=== PATIENT | female | born 2000 | race Caucasian/White ===

== ENCOUNTER 2025-05-03 20:50 | Emergency (ER) | payer MEDICAID, SELFPAY ==
--- NOTE | ~2025-05-03 | CT_ITS ---
CLINICAL HISTORY: abd pain, Cr elevated CT abdomen and pelvis without contrast Comparison: None provided Findings: There are a few micro nodules scattered through the lung bases. The gallbladder and solid organs are within normal limits. No renal stones. No bowel obstruction, pneumoperitoneum, or pneumatosis. Moderate stool. No hernia. Physiologic amount of fluid in the pelvis. Uterus and ovaries unremarkable. Normal appendix. No acute fracture. IMPRESSION: 1. There are few micro nodules in both lung bases which are indeterminate. Mckinley society recommendations do not apply to individuals less than 35 years of age. Follow-up as clinically indicated. 2. Otherwise unremarkable abdomen and pelvis CT. This document has been electronically signed by: Rodolfo Brush MD on 05/04/2025 00:52:23
[2025-05-03 21:00] VITALS: BP 146/96; PULSE 64; RESP 16; TEMP 37; O2SAT 97; BMI 27.0
[2025-05-03 21:17] LABS: Hematocrit 37.6 % (37.0-47.0); Hemoglobin 13.0 g/dl (12.0-16.0); Imm Gran Abs Auto 0.02 X10*3/uL (0.00-0.03); Imm Gran Pct Auto 0.2 % (0.0-0.4); Lymphocytes Absolute Auto 2.1 X10*3/uL (1.2-4.9); MANUAL DIFF FLAG NO; Mean Corpuscular HGB Conc 34.6 g/dl (31.0-35.0); Mean Corpuscular Hemoglobin 30.0 pg (27.0-33.0); Mean Corpuscular Volume 86.8 fL (80.0-98.0); NRBC Abs Auto 0.000 X10*3/uL (0.0-0.012); NRBC Pct Auto 0.0 /100WBC (0.0-0.2); Platelet Count 252 X10*3/uL (160-400); Red Blood Count 4.33 X10*6/uL (4.20-5.50); White Blood Count 9.8 X10*3/uL (4.8-10.8)
[2025-05-03 21:34] LABS: Alanine Aminotransferase 41 U/L (0-31); Albumin Level 4.2 g/dL (3.5-5.0); Alkaline Phosphatase 69 U/L (39-117); Anion Gap 12 (12-20); Aspartate Amino Transferase 29 U/L (5-31); Blood Urea Nitrogen 19 mg/dL (9-16); Calcium 9.2 mg/dL (8.4-10.2); Carbon Dioxide 25 mmol/L (22-29); Chloride 107 mmol/L (96-108); Creatinine Clr Calc Pharmacy 43.4; Estimated Glomerular Filt Rate 29; Potassium 4.0 mmol/L (3.3-5.1); Sodium 140 mmol/L (135-145); Total Protein 7.2 g/dL (6.5-8.0)
[2025-05-03 22:39] LABS: Appearance Urine Clear; Glucose Urine UA Negative (Negative); PH 5.5 (5.0-9.0); Specific Gravity - Urine <= 1.005 (1.005-1.025); UMIC TRIGGER UACC YES
[2025-05-03 22:40] LABS: UPreg QC Valid YES
--- NOTE | 2025-05-03 23:00 | ED.ABDPAIN ---
HPI - Abdominal Pain General Chief Complaint: Abdominal Pain Stated Complaint: Stomach pain Time Seen by Provider: 05/03/25 22:28 Source: patient Mode of arrival: ambulatory Limitations: no limitations History of Present Illness ED Provider: Dr. Milady Fontana HPI narrative: Patient comes to the emergency room complaining 3-4 days of abdominal discomfort, bloating, not feeling quite right. Patient denies nausea vomiting or diarrhea. Patient states that she took a laxative yesterday with no relief, still feels a bit bloated. In his any hematuria or dysuria, no flank pain. Patient denies any past medical history or taking any medication or supplements. Related Data Allergies Allergy/AdvReac Type Severity Reaction Status Date / Time No Known Allergies Allergy Unverified 05/03/25 21:00 Review of Systems Review of Systems Constitutional : No Weight loss, No Fever, No Chills, No Night Sweats, No Fatigue, No Malaise ENT/Mouth : No Hearing loss, No Ear Pain, No Nasal Congestion, No Sinus Pain, No Hoarseness, No sore throat, No Rhinorrhea, No Swallowing Difficulty Eyes: No Eye Pain, No Swelling, No Redness, No Foreign Body, No Discharge, No Vision Changes Cardiovascular : No Chest Pain, No SOB, No Dyspnea on Exertion, No Orthopnea, No Edema, No Palpitations Respiratory : No Cough, No Sputum, No Wheezing, No Smoke Exposure, No Dyspnea Gastrointestinal : No Nausea, No Vomiting, No Diarrhea, complaining of constipation in complaining of abdominal discomfort in bilateral lower quadrants Genitourinary : no irregular bleeding, No Dysuria, No Urinary Frequency, No Hematuria, No Urinary Incontinence, No Urgency, No Flank Pain, No Urinary Flow Changes, No Hesitancy Musculoskeletal : No joint pain, No Myalgias, No Joint Swelling Skin : No Skin Lesions, No rash Neuro : No Weakness, No Numbness, No Paresthesias, No Loss of Consciousness, No Dizziness, No Headache Psych : No Anxiety/Panic, No Depression, No SI/HI/AH/VH, No Social Issues, Heme/Lymph: No Bruising, No Bleeding,No Lymphadenopathy Endocrine : No Polyuria, No Polydipsia, No Temperature Intolerance PMFSH Social History Social History Smoked in Last 30 Days: No Advance Directives: No Advance Directives Information Provided: No Patient : No Physical Exam ED Exam Exam: Appearance: Alert. Oriented X3. No acute distress. Well-appearing Eyes: Pupils equal, round and reactive to light. ENT: Pharynx normal. Neck: Normal inspection. Neck supple. No lymph nodes noted. No crepitus CVS: Normal heart rate and rhythm. Pulses normal. Normal S1 and S2 Respiratory: No respiratory distress. Breath sounds normal. No Wheezing. No rales Abdomen: Soft discomfort to palpation in bilateral lower quadrants, no significant pain, no rebound or guarding, No rigidity. No distention. Skin: Skin warm and dry. Normal skin color. Normal skin turgor. Extremities: No lower extremity edema. No Lacerations. No Rash Neuro: Oriented X 3. No motor deficit. No sensory deficit. Moving all extremities. No slurred speech. CN 2 through 12 grossly intact Psych: calm, cooperative, normal affect Vital Signs: Vital Signs - 24 hr 05/03/25 21:00 05/04/25 02:03 Temperature 98.6 F 98.4 F Pulse Rate 64 65 Respiratory Rate 16 16 Blood Pressure 146/96 H 140/70 H Pulse Oximetry 97 97 Oxygen Delivery Method Room Air Room Air BMI result Body Mass Index 27.0 Medical Decision Making Medical Decision Making MDM Narrative: My interpretation of labs: No significant abnormality in patient's hematology. Patient's chemistry shows a creatinine of 2.04. LFTs within normal limits To patient's knowledge, she has never been diagnosed with any renal conditions, has not being dehydrated, no nausea vomiting or diarrhea. Patient receiving IV fluids and then we will recheck labs. Given patient's complaints and labs, we will obtain a CT scan of the abdomen to rule out a urologic obstruction Patient agrees with plans CT scan does not show any significant acute abnormalities. Nonspecific nodules After 2 L of fluid, the patient's creatinine barely improved to 1.9. However, there was no significant improvement as expected with 2 L. I recommended admission to the hospital for further evaluation. However, patient is very concerned that she does not have health insurance in the that patient would be a very high cost that she can not afford. I discussed with the patient that we could have a associate financial advisor from our hospital talk to her regarding insurance. However, patient states that she would prefer to be discharged, follow-up outpatient with Nephrology, and tomorrow she will return to the hospital through the main door to apply for insurance. Patient has been asked to stop taking ibuprofen and to drink plenty of fluids, patient agrees with plan Differential Diagnosis Differential Diagnoses: The differential diagnosis associated with the presentation includes (Ureterolithiasis, small bowel obstruction, dehydration, UTI) Admission/Observation Consideration of admission/observation: Escalation of care including admission/observation considered (Admission was recommended, patient respectfully declined) Lab Data MDM Lab Attestation statement: I reviewed the patient's lab results. 05/03/25 21:11 05/04/25 02:45 Labs: Lab Results 05/03/25 05/03/25 05/04/25 Range/Units 21:11 22:27 02:45 WBC 9.8 (4.8-10.8) X10*3/uL RBC 4.33 (4.20-5.50) X10*6/uL Hgb 13.0 (12.0-16.0) g/dl Hct 37.6 (37.0-47.0) % MCV 86.8 (80.0-98.0) fL MCH 30.0 (27.0-33.0) pg MCHC 34.6 (31.0-35.0) g/dl RDW 12.0 (11.0-16.0) % Plt Count 252 (160-400) X10*3/uL MPV 9.6 (9.4-12.3) fL Immature Gran % (Auto) 0.2 (0.0-0.4) % Neut % (Auto) 66.1 (45-73) % Lymph % (Auto) 21.2 (20-40) % [place] % (Auto) 10.3 (2-11) % Eos % (Auto) 1.6 (0-4) % Baso % (Auto) 0.6 (0-2) % Lymph # (Auto) 2.1 (1.2-4.9) X10*3/uL [place] # (Auto) 1.0 (0.1-1.2) X10*3/uL Eos # (Auto) 0.2 (0.0-0.4) X10*3/uL Baso # (Auto) 0.1 (0.0-0.2) X10*3/uL Abs Immat Gran (auto) 0.02 (0.00-0.03) X10*3/uL Absolute Neuts (auto) 6.5 (2.0-8.3) x10*3/uL Absolute Nucleated RBC 0.000 (0.0-0.012) X10*3/uL Nucleated RBC % (auto) 0.0 (0.0-0.2) /100WBC Sodium 140 142 (135-145) mmol/L Potassium 4.0 4.0 (3.3-5.1) mmol/L Chloride 107 111 H (96-108) mmol/L Carbon Dioxide 25 22 (22-29) mmol/L Anion Gap 12 13 (12-20) BUN 19 H 17 H (9-16) mg/dL Creatinine 2.04 H 1.94 H (0.5-1.4) mg/dL Estim Creat Clear Calc 43.4 45.6 Estimated GFR 29 31 Random Glucose 84 91 (60-115) mg/dL Calcium 9.2 8.0 L D (8.4-10.2) mg/dL Total Bilirubin 0.7 (0.0-1.0) mg/dL AST 29 (5-31) U/L ALT 41 H (0-31) U/L Alkaline Phosphatase 69 (39-117) U/L Total Protein 7.2 (6.5-8.0) g/dL Albumin 4.2 (3.5-5.0) g/dL Urine Color Yellow Urine Appearance Clear Urine pH 5.5 (5.0-9.0) Ur Specific [place] <= 1.005 (1.005-1.025) Urine Protein 100 (2+) H (Neg-Trace) mg/dL Urine Glucose (UA) Negative (Negative) mg/dL Urine Ketones Trace (Negative) mg/dL Urine Blood Negative (Negative) Urine Nitrite Negative (Negative) Ur Leukocyte Esterase Negative (Negative) Urine RBC 0-2 (0-2) /HPF Urine WBC 0-5 (0-5) /HPF Ur Squamous Epith Cells 0-2 (0-2) /HPF Urine Bacteria None Seen (None Seen) Hyaline Casts 3-5 (0-2) /LPF Urine Test NEGATIVE (NEGATIVE) Independent Interpretation I performed an independent interpretation of an: CT Scan Radiology Impression Discussion of test interpretation with radiology: I have reviewed the radiologist's reading. Radiologist Impression: Findings: There are a few micro nodules scattered through the lung bases. The gallbladder and solid organs are within normal limits. No renal stones. No bowel obstruction, pneumoperitoneum, or pneumatosis. Moderate stool. No hernia. Physiologic amount of fluid in the pelvis. Uterus and ovaries unremarkable. Normal appendix. No acute fracture. IMPRESSION: 1. There are few micro nodules in both lung bases which are indeterminate. Mckin[employer] society recommendations do not apply to individuals less than 35 years of age. Follow-up as clinically indicated. 2. Otherwise unremarkable abdomen and pelvis CT. Medications Administered Discontinued Medications Generic Name Dose Route Start Last Admin Trade Name Freq PRN Reason Stop Dose Admin Sodium Chloride 2,000 mls @ 999 mls/hr 05/03/25 22:51 05/04/25 02:40 Ns IVCONT 05/04/25 00:51 Infused .Q2H1M ONE Infusion Morphine Sulfate 2 mg 05/03/25 23:56 05/04/25 00:15 Morphine Sulfate 4 Mg/Ml Cartridge IVPUSH 05/03/25 23:57 Not Given ONCE ONE Protocol Critical Care Time Critical Care Time Critical Care Time: Yes Total Critical Care Time: 45 Attestation: I have personally provided critical care time. Time includes review of lab data, radiology results, discussion with consultants, and monitoring for potential decompensation. Intervention performed as documented. Discharge Plan Discharge Clinical Impression: Abdominal pain, FELIX (acute kidney injury) Patient Disposition: Home, Self-Care Instructions: Abdominal Pain (ED), Acute Kidney Injury (DC) Additional Instructions: Your creatinine is elevated. It is not back to normal and ideally she should be admitted for further workup. Please drink plenty of fluids. Avoid taking ibuprofen, only Tylenol if needed PRN pain. Please follow-up with your primary care physician tomorrow. If you have any worsening or new symptoms, please return to the emergency room or call 911 Referrals: Gabriel Panchal MD [Physician, Nephrology] Print Language: Indonesian
[2025-05-04 02:03] VITALS: BP 140/70; PULSE 65; RESP 16; TEMP 36.9; O2SAT 97
[2025-05-04 03:07] LABS: Anion Gap 13 (12-20); Blood Urea Nitrogen 17 mg/dL (9-16); Calcium 8.0 mg/dL (8.4-10.2); Carbon Dioxide 22 mmol/L (22-29); Chloride 111 mmol/L (96-108); Creatinine Clr Calc Pharmacy 45.6; Estimated Glomerular Filt Rate 31; Potassium 4.0 mmol/L (3.3-5.1); Sodium 142 mmol/L (135-145)
[2025-05-04 04:25] VITALS: BP 138/73; PULSE 72; RESP 16; TEMP 36.9; O2SAT 99
--- NOTE | 2025-05-04 04:25 | PC.NURSE ---
states she needs to go to be home in time, notified, pt states she is ready to d/c and wants to f/u with primary and nephro, no admission. ambulates steadily no assist, no signs of distress
== END 2025-05-04 04:27 | disposition home or self-care (01) ==
PROVIDERS: Emergency Provider Emergency Medicine
DX: N17.9 Acute kidney failure, unspecified (principal); R10.9 Unspecified abdominal pain; R14.0 Abdominal distension (gaseous)
CPT/HCPCS: 36415; 74176; 80048; 80053; 81001; 81025; 85025; 96360; 96361; 96374; 99284

== ENCOUNTER → 2025-05-03 22:57 | Outpatient (BNV) | payer MEDICAID, SELFPAY | PROVIDERS: Emergency Provider Emergency Medicine; Visit Provider Radiology Diagnostic Radiology | DX: R10.9 Unspecified abdominal pain (principal); R91.8 Other nonspecific abnormal finding of lung field | CPT/HCPCS: 74176 ==

== ENCOUNTER 2025-05-21 15:21 | Outpatient (REF) | payer OTHER, SELFPAY ==
[2025-05-21 16:45] LABS: Estimated Glomerular Filt Rate > 60
== END 2025-05-21 15:22 | disposition home or self-care (01) ==
LOC: HO.LAB 15:21
PROVIDERS: PCP Nurse Practitioner Family; Visit Provider Internal Medicine Hypertension Specialist
DX: R10.30 Lower abdominal pain, unspecified (principal); N17.9 Acute kidney failure, unspecified
CPT/HCPCS: 36415; 82565; 99202

== ENCOUNTER 2025-05-21 15:21 | Outpatient (AMB) | payer SELFPAY ==
[2025-05-21 15:30] VITALS: BP 120/78; PULSE 62; O2SAT 97; BMI 26.3
--- NOTE | 2025-05-21 15:30 | HO.NEPHOV_ITS ---
Vital Signs 05/21/25 15:30 Height 5 ft 6 in Weight 163 lb BMI 26.3 BP 120/78 Blood Pressure Location Lt brachial Position Sitting Pulse 62 Pulse Source Pulse Oximeter Pulse Oximetry (%) 97 Oxygen Delivery Method Room Air Intake Visit Reasons: INP: Chronic Kidney Injury Stunner Required: No Accompanied by: Self / Same As Patient Allergies No Known Allergies Allergy (Verified 05/21/25 15:33) HPI Comments Details: The patient is a 24-year-old female presenting for evaluation of elevated creatinine discovered during a recent emergency department visit. She recently presented to the emergency department for stomach pain located in the lower abdomen, near the kidneys. During this visit, bloodwork revealed a high creatinine level, which did not significantly improve after the administration of two bags of intravenous fluids. The patient also reported being constipated at the time, consistent with a lifelong history of constipation, and was advised to take MiraLax. Her abdominal pain resolved after a few days. The patient had a urinary tract infection a few months prior, around March, which required two different courses of antibiotics to resolve. She denies any difficulty urinating. Urinalysis from the emergency department visit revealed proteinuria. For the abdominal pain, the patient took ibuprofen, about two tablets a day for two days. She reports adequate fluid intake, specifically noting that she drinks a lot of water. She denies any other significant medical history and reports no known family history of kidney problems. [facility] Family History (Updated 05/21/25 @ 15:32 by YOLANDA Garrido) Maternal Grandmother Hypertension Review of Systems Const Denies fever(s) and Denies weight loss Card Denies chest pain Resp Denies cough and Denies hemoptysis GI Denies abdominal pain, Denies diarrhea and Denies nausea Musc Denies back pain Neuro Denies focal weakness Physical Exam Vital Signs: Last Vital Signs Pulse 62 05/21/25 15:30 BP 120/78 05/21/25 15:30 Pulse Ox 97 05/21/25 15:30 Oxygen Delivery Method Room Air 05/21/25 15:30 BMI result Body Mass Index 26.3 Comfortable Neck supple no JVD. Lungs entry equal no rales. Heart S1-S2 heard no gallop or rub. Abdomen soft nontender. Neuro alert awake oriented. No asterixis. Extremities no edema. Results Reviewed Nephrology Results: Hgb, (12.0-16.0) 13.0 g/dl 05/03/25 WBC, (4.8-10.8) 9.8 X10*3/uL 05/03/25 Plt Count, (160-400) 252 X10*3/uL 05/03/25 Sodium, (135-145) 142 mmol/L 05/04/25 Potassium, (3.3-5.1) 4.0 mmol/L 05/04/25 Chloride, (96-108) 111 mmol/L H 05/04/25 Carbon Dioxide, (22-29) 22 mmol/L 05/04/25 BUN, (9-16) 17 mg/dL H 05/04/25 Creatinine, (0.5-1.4) 0.71 mg/dL 05/21/25 Calcium, (8.4-10.2) 8.0 mg/dL L Δ 05/04/25 Urine Protein, (Neg-Trace) 100 (2+) mg/dL H 05/03/25 Assessment & Plan Assessment & Plan (1) Abdominal pain: Code(s): R10.9 - Unspecified abdominal pain Category: Medical Plan 1. Acute Kidney Injury - The etiology of the patient's acute kidney injury is unclear, with differential diagnoses including medication-induced injury from recent ibuprofen use or an underlying intrinsic kidney disease, given the presence of proteinur ia. - Although the patient had a recent UTI, it is considered less likely to be the cause given the time that has elapsed since treatment. - A stat creatinine level will be checked today to monitor the trend. - The patient was advised to maintain adequate hydration and to strictly avoid ibuprofen. - Follow-up will be conducted via telephone to discuss the lab results. - If creatinine levels remain elevated, a more extensive workup will be planned for July when the patient anticipates having insurance coverage. Orders: Orders Creatinine 05/21/25 N17.9 - Acute kidney failure, unspecified Creatinine Urine 7 Weeks N17.9 - Acute kidney failure, unspecified Sodium Urine Random 7 Weeks N17.9 - Acute kidney failure, unspecified Total Protein Urine Random 7 Weeks N17.9 - Acute kidney failure, unspecified Basic Metabolic Panel 7 Weeks N17.9 - Acute kidney failure, unspecified UA and rflx microscopic 7 Weeks N17.9 - Acute kidney failure, unspecified Patient Instructions: - Go to the hospital lab to have your blood drawn for a creatinine test. - Make sure to drink plenty of fluids. - Do not take any more ibuprofen. - Our office will call you with your lab results, whether they are normal or abnormal. - A follow-up visit will be scheduled in July. Coding Level of Care Code New Pt Level 3 (34465) Diagnoses Abdominal pain R10.9
== END 2025-05-21 15:50 | disposition home or self-care (01) ==
LOC: HO.HKA 15:22
PROVIDERS: PCP Nurse Practitioner Family; Visit Provider Internal Medicine Hypertension Specialist
DX: R10.9 Unspecified abdominal pain (principal)
CPT/HCPCS: 99203